=== PATIENT | female | born 1950 ===

== ENCOUNTER 2017-07-12 06:04 | Day surgery (SDC) | payer MEDICARE, OTHER ==
[2017-07-09 07:31] VITALS: BMI 40.4
[2017-07-12] MEDS ORDERED: Lactated Ringer's 1,000 ML IV ONE ×2 (06:54→09:00)
--- NOTE | 2017-07-12 07:19 | CP.PCM.PN ---
<Geronimo Atwood - Last Filed: 07/12/17 08:47> Subjective - Date & Time of Evaluation Date of Evaluation: 07/12/17 Time of Evaluation: 07:18 - Subjective Subjective: 67 year old female with PMH of hypothyroidism and hypercholesterolemia was seen in [facility] for left foot surgery. Patient reports that she has left ankle pain, rating the pain 10/10. She feels she has exhausted all conservative treatment and now opts for surgical intervention. She reports the last time she ate or drank was at 9pm last night. She denies n/v/sob/cp/chills or f. ALL: NKDA MEDS: Levothyroxin, Simvastatin PSH: left foot surgery SH: denies smoking, drinking, or ilicit drug use FH: noncontributory Objective - Vital Signs/Intake and Output Vital Signs (last 24 hours): Temp Pulse Resp BP Pulse Ox 98.8 F 72 20 134/76 100 07/12/17 06:32 07/12/17 06:34 07/12/17 06:32 07/12/17 06:32 07/12/17 06:32 - Constitutional Appears: Well, Non-toxic, No Acute Distress - Extremities Exam Additional comments: Vasc: DP 2/4 bilaterally, PT 1/4 bilaterally, CFT <3 seconds x10 digis, no edema present, temperature warm to cool from knees to distal toes Ortho: Left positive anterior drawer sign, severe pain to palpation of the ATFL , moderate pain to the palpation of the peroneal tendons, MM is 4/5 in all four compartments with some guarding noted to left eversion, equinus noted bilaterally with <10 degrees of dorsiflexion with knee flexed and extended, STJ ROM is WNL, RCSP with increase eversion bilaterally, 1st MPJ ROM is <65 degrees bilaterally and limited, MTPJ position is neutral, no limb length discrepancy appreciated, 1st ray position is plantarflexed, MTJ and TNJ ROM is congruent and WNL, no HT to digits 2-5 noted, antalgic gait noted Neuro:protective and light sensation intcat bilaterally Derm: no open lesions, no wounds, no signs of infection, skin color WNL - Neurological Exam Neurological Exam: Alert, Awake, Oriented x3 - Psychiatric Exam Psychiatric exam: Normal Affect, Normal Mood Assessment and Plan - Assessment and Plan (Free Text) Assessment: 67 year old female with PMH of hypothyroidism and hypercholesterolemia was seen in [facility] for preoperative evaluation Plan: Pt was seen and examined in [facility] Pt NPO status was confirmed All Pre-op testing and clearance was in the chart Pt has exhausted all conservative treatment at this time and is opting for surgical intervention Pt was explained procedure and post-operative course All pt's questions were answered to satisfaction No guarantees were made Pt understands all risks, benefits and complications of procedure Pt will follow-up with Dr. Dugan in podiatry clinic within 1 week <Kasie Dugan - Last Filed: 07/13/17 09:24> Objective - Vital Signs/Intake and Output Vital Signs (last 24 hours): Temp Pulse Resp BP Pulse Ox 97.6 F 68 18 135/80 100 07/12/17 15:10 07/12/17 15:10 07/12/17 15:10 07/12/17 15:10 07/12/17 15:10
[2017-07-12] MEDS ORDERED: Bupivacaine HCl 0.25% PF (30 ml) Inj IJ ONE (07:20)
[2017-07-12] MEDS ORDERED: Lidocaine 1% Inj (20ml) IJ ONE (07:20)
--- NOTE | 2017-07-12 07:20 | CP.SDSHP ---
Same Day Surgery H & P - History Proposed Procedure: Left ankle arthroscopy with lateral ankle stablization and peroneal tendon repair Pre-Op Diagnosis: Left ankle instability and peroneal tendon repair - Previous Medical/Surgical History Endocrine/Metabolic: Thyroid Disease Pain: 10.Worst Possible Pain - Allergies Allergies: Allergies No Known Allergies Allergy (Verified 05/08/16 10:55) - Physical Exam Vital Signs: Vital Signs 07/12/17 07/12/17 06:32 06:34 Temperature 98.8 F Pulse Rate 72 72 Respiratory 20 Rate Blood Pressure 134/76 O2 Sat by Pulse 100 Oximetry Mental Status: Alert & Oriented x3 - Impression Impression: Pt was seen and examined in [facility]. Pt NPO status was confirmed. All Pre-op testing and clearance was in the chart. Pt has exhausted all conservative treatment at this time and is opting for surgical intervention. Pt was explained procedure and post-operative course. All pt's questions were answered to satisfaction. No guarantees were made. Pt understands all risks, benefits and complications of procedure. Pt will follow-up with Dr. Dugan Short Stay Discharge - Short Stay Discharge Admitting Diagnosis/Reason for Visit: S86.312A Disposition: HOME/ ROUTINE Referrals: Charly Chatman MD [Primary Care Provider] - Instructions: RICE Therapy (GEN), Oxycodone/Acetaminophen (By mouth), Cephalexin (By mouth), Naproxen (By mouth) Additional Instructions (Diet, Activity): --Patient in good/stable condition for discharge home. Pt to resume medications per medical reconciliation. Resume regular diet. Please keep dressing clean, dry, & intact to surgical site, use plastic bag over bandage for showering, keep posterior splint, NWB with rolling walker, call clinic if you see signs of infection (redness, swelling, malodor), please make an appointment to see Dr. Dugan in office/clinic within 1 week for post-op check. Please bring CAM boot to next visit. Progress Note/Discharge Note with Instructions: - Patient evaluated bedside in recovery s/p surgical procedure. - After surgical procedure patient in NAD - (+) Void, (+) Appetite - Capillary refill time <3s and NVSI intact. - Patient denies complaints at this time - Post operative instructions and plan of care explained to patient at length. - Pt. acknowledges understanding. - Patient stable for DC per podiatric surgery
[2017-07-12] MEDS ORDERED: ceFAZolin 2 GM in Sodium Chloride 0.9% 100 ML IVPB ONE (07:40)
[2017-07-12] MEDS ORDERED: Propofol 10 mg/ml Inj (20 ML) ONE (07:51)
[2017-07-12] MEDS ORDERED: Midazolam 2 MG/2 ML VIAL ONE (07:51)
[2017-07-12] MEDS ORDERED: Bupivacaine HCl/Epi 0.5% 1:20000 30 ML SOL IJ ONE ×2 (07:52→07:53)
[2017-07-12] MEDS ORDERED: Dexamethasone 4 mg/1 ml ONE (07:53)
[2017-07-12] MEDS ORDERED: ceFAZolin IV 1 gm in Dextrose 1 GM/50 ML BAG IVPB ONE ×2 (07:53→08:08)
[2017-07-12] MEDS ORDERED: Lidocaine 1% Inj (20ml) ONE (07:53)
[2017-07-12] MEDS ORDERED: Bupivacaine 0.5% Inj(30mL) ONE (07:53)
--- NOTE | 2017-07-12 10:36 | PCM.SURG1 ---
<Geronimo Atwood - Last Filed: 07/12/17 10:34> Surgeon's Initial Post Op Note - Surgeon's Notes Surgeon: Dr. Dugan DPM Director Consumer Affairs: Dr. Barbara IBARRA PGY-3, Type of Anesthesia: General LMA, Local Anesthesia Administered By: Ludwin Pre-Operative Diagnosis: Left ankle synovitis/arthritis. Lateral ankle instability. Tibi/Fib Exosotis. Left peroneal longus and brevis muscle tear. Left p. Brevis low lying muscle beally Operative Findings: See dictation Post-Operative Diagnosis: Same Operation Performed: Left ankle scope. Partial excision tibia. partial excision fibula. repair primary disrupted ligament. repair dislocation tendons. arthrocentesis. BK cast application. intra op flouro Specimen/Specimens Removed: None Estimated Blood Loss: EBL {In ML}: 10 Blood Products Given: N/A Drains Used: No Drains Post-Op Condition: Good Date of Surgery/Procedure: 07/12/17 Time of Surgery/Procedure: 10:36 <Kasie Dugan - Last Filed: 07/16/17 15:07> Surgeon's Initial Post Op Note - Surgeon's Notes Surgeon: Dr. Kasie Dugan, DPM Director Consumer Affairs: Dr. Sandip Jimenez DPM, PGY-3, HOMERO DiorM PGY-2 Type of Anesthesia: Other (Popliteal Block) Anesthesia Administered By: Dr. Mascorro Operation Performed: Application of BKA cast, left leg Estimated Blood Loss: EBL {In ML}: 5
[2017-07-12] MEDS ORDERED: HYDROmorphone 0.5 mg/0.5 ml ISec IVP PRN (10:37)
[2017-07-12] MEDS ORDERED: Oxycodone/Acetaminophen 5/325 mg Tab PO PRN ×2 (10:40)
--- NOTE | 2017-07-12 10:40 | PCM.ANESB2 ---
Popliteal Nerve Block - Popliteal Nerve Block Date of Procedure: 07/12/17 Anesthesiologist: Fred Pre-Procedure Diagnosis: left ankle instability Post-Procedure Diagnosis: left ankle arthroscopy Procedure Performed: Popliteal Nerve Block Left - Procedure Popliteal Nerve Block: This procedure was explained to the patient that it is for post-operative pain management. Consent was obtained after a thorough discussion with the patient regarding the benefits and possible complications of local anesthetic block of the sciatic nerve at the popliteal level. The patient was brought to the operating room and standard monitors are applied. Time-out was held with the circulating nurse to confirm the correct surgery and the appropriate block. After applying oxygen by nasal cannula and administering IV Sedation, patient's operative leg was gently raised and supported and the groove in between the biceps femoris and vastus lateralis muscles was carefully palpated. The skin approximately 8cm above the popliteal crease was then marked. The ultrasound transducer was then applied to the posterior thigh approximately 8cm above the popliteal crease in the transverse plane and the sciatic nerve before its division was visualized lateral to the popliteal artery and in between the bicep femoris and semimembranosus/semitendinosus muscles. After identification, the lateral portion of the thigh was prepped with Betadine solution three times and Lidocaine 1% was injected subcutaneously for topical anesthesia. At this point, a # 21 gauge Stimuplex insulated 4 inch needle was inserted into pre-marked area and advanced in a perpendicular direction. The needle was inserted above the ultrasound transducer in-plane towards the sciatic nerve in a [id number] direction. Needle advancement was performed carefully under direct ultrasound visualization. Nerve stimulator was used and dorsiflexion of the _left____ foot was elicited at a current of __0.4___ MA. After repeated negative aspiration, __5___cc of _0.5____ % ___Ropivacaine was injected and this was flowed with __25____ cc of __0.5____% __Ropivacaine ___. Under ultrasound guidance the local anesthetics were observed surrounding sciatic nerve . The needle was removed intact and sterile dressing was applied. The patient tolerated the popliteal nerve block well with stable vital signs and was subsequently prepared for the surgery.
[2017-07-12] MEDS ORDERED: Lactated Ringer's 1,000 ML IV SCH (10:45)
[2017-07-12 12:47] VITALS: RESP 18
[2017-07-12 15:28] VITALS: BP 135/80; PULSE 68; TEMP 97.6; O2SAT 100
--- NOTE | 2017-07-15 10:09 | PCM.OP ---
Operative Report - Operative Report Date of Surgery/Procedure: 07/12/17 Time of Surgery/Procedure: 08:00 Surgeon: Ritchie IBARRA Yarn Weigher: Barbara PGY 3 Anesthesia/Sedation: General sedation with Pop block Pre-Operative Diagnosis: 1) Left ankle Synovitis/Arthritis. 2) Left ankle instability. 3) left Peroneal longus/brevis tear. 4) Low lying Peroneal muscle belly Post-Operative Diagnosis: Same
--- NOTE | 2017-07-18 15:50 | OP ---
DATE: 07/12/2017 PREOPERATIVE DIAGNOSES: 1. Left ankle arthritis/synovitis. 2. Left ankle instability. 3. Left peroneal tendon tears in the peroneus longus and peroneus brevis. 4. Left peroneal low-lying muscle belly. POSTOPERATIVE DIAGNOSES: 1. Left ankle arthritis/synovitis. 2. Left ankle instability. 3. Left peroneal tendon tears in peroneus longus and peroneus brevis. 4. Left peroneal low-lying muscle belly. PROCEDURES PERFORMED: 1. Left ankle arthroscopy. 2. Partial excision, tibia. 3. Partial excision, fibula. 4. Repair of primary disrupted ligament. 5. Repair of dislocated tendons. 6. Arthrocentesis. 7. Below knee cap application. 8. Extensive intraoperative fluoroscopy use. SURGEON: Kasie Dugan DPM [employer] SUPERVISOR: Sandip Jimenez, PGY3 TYPE OF ANESTHESIA: General sedation with popliteal block. ANESTHESIA ADMINISTERED BY: Dr. Mascorro. INDICATIONS: The patient is a 67-year-old female with the above-mentioned diagnoses. The patient has exhausted all forms of conservative treatment at this time and wished to have surgical intervention for the conditions listed above. After careful explanation of risks, benefits and complications for the procedure, the patient signed consent form. All questions and concerns addressed at this time. Prior to taking the patient to the OR, NPO status was confirmed, preoperative antibiotics were given. DESCRIPTION OF PROCEDURE: The patient was brought to the operating room, placed on the operating table in supine position. Pneumatic thigh tourniquet was placed on the patient's left thigh at 350 mmHg following induction of general sedation, the left ankle was prepped and draped in normal sterile manner and the procedure began. 1. Left ankle arthroscopy: At this time, attention was directed to the patient's left ankle. With the use of a 20 mL syringe and normal saline, the left ankle was insufflated until there was pressure felt against the insufflation needle. At this time, with the use of a #11 blade, a small incision was made directly medial to the tibialis anterior tendon at the level of the ankle joint. The incision was then made deep with blunt dissection to the level of the capsule. The capsule was then pierced with a hemostat, and the canula was inserted with a trocar, and the trocar was removed, and the canula was left in place in the scope. A 4.0, 70-degree scope was inserted into the ankle joint. At this time, the ankle joint was completely examined. It was noted that there was diffuse synovitis throughout the anterior ankle joint with mild arthritis and bone spurring across the anterior tibia along the medial aspect of the fibula as well impinging range of motion. At this time, the lateral aspect of the ankle was transilluminated, and with the use of the #11 blade, making sure to avoid all vital neurovascular structures. A small incision was then made on the lateral aspect of the ankle joint. The incision was then carried deep down to the level of the capsule. The capsule was pierced, and the 3.5 shaver was placed into the ankle joint. At this time, with the use of a shaver and triangulation with the camera, all synovitis and arthritis were removed in the ankle joint without complication. Attention was then directed into the medial and lateral tibial and fibula where with the use of the shaver, portions of the anterior tibia and medial fibula were then removed where the bone spurring was present without complications down to bleeding healthy bone. The ankle joint range of motion was noted to improve. Any impingement that was caused by these bone spurs was removed at this time. Following this, a diffuse inspection of the ankle joint occurred looking down the medial gutter and lateral gutter and across the surface of the talus. There was not noted to be any osteochondral defect at this time across the talus. All the synovitis and arthritis have been removed, so the ankle joint was thoroughly flushed with the scope. The scope was then removed, the shaver was then removed, and the two portals were then closed with 4-0 nylon in normal sterile manner. 2. Left ankle stabilization with the use of an internal brace: At this time, attention was then directed to the patient's lateral ankle directly distal to the fibula where with the use of a #15 blade, a curvilinear incision was made distal to the fibula directly overlying the anterior talofibular joint. At this time, the incision was then carried deep making sure to retract all vital neurovascular structures. This incision was carried down through the fat pad down to the level of the anterior talofibular ligament where there was noted to be extensive scarring of the anterior talofibular ligament and attenuation of the ligament. At this time, with the use of #15 blade, the remainder of what was left of the ligament was severed, and with the use of sharp dissection, the periosteum was then reflected back off the tibia, and exposure was gained to the distal body and proximal neck of the talus. At this time, with extensive use of intraoperative fluoroscopy, a K-wire was then driven back from the proximal aspect of the neck of the tibia back into the body of the talus. This was verified with the use of the C-arm making sure we were in good positioning, and at this time with the use of the drill set that was provided in the kit for the internal brace, the talar neck was then drilled. A 4.5 tap was obtained. It was tapped, and the internal brace distal part was inserted into the talus without complication. The internal brace suture wire was then looped through a needle, and the needle was passed through the remainder of the distal aspect of the anterior talofibular ligament. At this time, attention was then directed back to the proximal aspect of the fibula where with the use of the kit-provided two SutureTaks were then drilled in place into the distal aspect of the fibula. At this time, the second hole for the internal brace was also drilled in the distal aspect of the fibula, and a guidewire was placed into this. All the wires and holes that were drilled were verified with the use of intraoperative fluoroscopy. Following this, with the use of SutureTaks, a [id number] design suture was passed through the proximal aspect of the anterior talofibular ligament and then to the distal aspect back on itself with both of the SutureTaks making a nice tight secure of the remainder of the anterior talofibular ligament. At this time, the second part of the internal brace was then placed into the fibula. The foot was mildly dorsiflexed and everted to secure a tight fit. In the proximal aspect, the internal brace was placed into the fibula and screwed in without complication. Following this, the wound was then flushed with copious amounts of normal sterile saline. The anterior talofibular ligament was then noted to be tight, and not as much eversion was noted in the ankle joint when put through range of motion. The wound was then flushed with copious amounts of normal sterile saline. The anterior talofibular ligament was then reinforced with 2-0 Vicryl, and the wound was closed with 2-0 Vicryl and 4-0 nylon in a normal sterile manner. 3. Primary repair of dislocating peroneal tendons: At this time, attention was then directed to the posterior aspect of the fibula where with a #15 blade, a roughly 3-cm long incision was made directly overlying the peroneal tendons. This incision was then carried deep down to the level of the peroneal tendon making sure to retract all vital neurovascular structures. All bleeders were ligated as necessary. The peroneus longus and peroneus brevis were identified, and at this time, there was noted to be a small linear tear in both the peroneus longus and peroneus brevis. There was also noted to be a large overlying muscle belly of the peroneus brevis that extended down to the level of the ankle joint, which was abnormal and caused dislocating tendons and weakness of the peroneus. So, at this time, decision was made to remove the extra muscle belly, and with the use of intra-op Bovie, the muscle was then reflected back off the tendon. Following this, the tears were then noted to be roughly 2 cm long in linear fashion in both the peroneus longus and peroneus brevis. So, with the use of 4-0 Monocryl, the tears in both were sutured back together without complication. Following this, the wounds were then flushed with copious amounts of normal sterile saline. The retinaculum was then repaired over the tendons with 2-0 Vicryl, and the wounds were closed with 2-0 Vicryl and 4-0 nylon in normal sterile manner. Following this, the patient was placed into a non-weightbearing below-knee splint with normal dressings. The patient is to be non-weightbearing to the lower extremity and will follow up in the clinic. POSTOPERATIVE CONDITION: The patient tolerated anesthesia and procedure well and was transported to the recovery room, vital signs stable, neurovascular status intact to the left foot. The patient will follow up with Dr. Kasie Dugan in the Podiatry Clinic in [facility] as previously discussed with the patient. Sandip Jimenez DPM Kasie STACEY Dugan [facility] # [id number]
== END 2017-07-12 15:55 | disposition home or self-care (01) ==
LOC: H.OPSURG 06:04 → EDSTATUS 07:45 → H.OPSURG 15:55
PROVIDERS: ATTEND Podiatrist Primary Podiatric Medicine
DX: S86.312A Strain of muscle(s) and tendon(s) of peroneal muscle group at lower leg level, left leg, initial encounter (principal); X58.XXXA Exposure to other specified factors, initial encounter; J45.909 Unspecified asthma, uncomplicated; E78.5 Hyperlipidemia, unspecified; M19.072 Primary osteoarthritis, left ankle and foot; M25.372 Other instability, left ankle; M65.9 Synovitis and tenosynovitis, unspecified; Z01.818 Encounter for other preprocedural examination; Z98.890 Other specified postprocedural states; E66.9 Obesity, unspecified
CPT/HCPCS: 20605; 28200; 29891; 97116; 97161; G8978; G8979; G8980; J0690; J1170; J2250; J2405; J2704; J3010; J7030; J7120